=== PATIENT | male | born 1955 | race Hispanic/Latino ===

== ENCOUNTER 2022-06-22 04:16 | Emergency (ER) | payer OTHER ==
--- NOTE | 2022-06-22 05:27 | EDPHYS ---
Physician Documentation [facility] Name: José Manuel De La Paz Age: 67 yrs Sex: Male : 1955 Arrival Date: 06/22/2022 Time: 04:23 Bed 10 Private MD: ED Physician Esdras Zhong HPI: 06/22 07:37 This 67 yrs old Male presents to ER via Ambulatory with complaints of Numbness kdr Of Face, Cough, Congestion. 07:38 Patient states that they have not been feeling well for the past week or so since that kdr he the flu. During speaking he has been feeling weak with mild cough and congestion he also complains primarily of a certain discomfort of his upper eyelid on the left . Onset: The symptoms/episode began/occurred yesterday. Severity of symptoms: At their worst the symptoms were mild in the emergency department the symptoms are unchanged. The patient has not experienced similar symptoms in the past. The patient has not recently seen a physician. Historical: - Allergies: 05:35 No Known Allergies; ke1 - PMHx: 05:35 None; ke1 - PSHx: 05:35 None; ke1 - Immunization history:: Client reports receiving the 2nd dose of the Covid vaccine. - Social history:: Smoking status: Patient/guardian denies using tobacco, the patient reports quitting approximately 20 years ago. ROS: 07:38 Constitutional: Negative for fever, chills, and weight loss, Eyes: Negative for injury, kdr pain, redness, and discharge, Neck: Negative for injury, pain, and swelling, Cardiovascular: Negative for chest pain, palpitations, and edema. 07:38 Eyes: Positive for itching, pain, redness, of the left upper eyelid, Negative for kdr discharge, foreign body sensation, icterus, tearing, vision loss. Exam: 07:38 Constitutional: This is a well developed, well nourished patient who is awake, alert, kdr and in no acute distress. Head/Face: Normocephalic, atraumatic. Neck: Trachea midline, no thyromegaly or masses palpated, and no cervical lymphadenopathy. Supple, full range of motion without nuchal rigidity, or vertebral point tenderness. No Meningismus. 07:38 Eyes: Lids and lashes: edema, of the left eye, erythema, on the left, Margin of left upper lid. Vital Signs: 05:32 BP 170 / 92; Pulse 67; Resp 19; Temp 98.1; Pulse Ox 99% on R/A; Weight 64.41 kg; Height ke1 5 ft. 3 in. (160.02 cm); 05:32 Body Mass Index 25.15 (64.41 kg, 160.02 cm) ke1 NIH Stroke Scale Scores: 05:35 NIHSS Score: 0 ke1 MDM: 05:26 Patient medically screened. kdr 07:38 Data reviewed: vital signs, nurses notes. Counseling: I had a detailed discussion with kdr the patient and/or guardian regarding: the historical points, exam findings, and any diagnostic results supporting the discharge/admit diagnosis, the need for outpatient follow up. Administered Medications: No medications were administered Disposition Summary: 06/22/22 05:26 Discharge Ordered Location: Home kdr Problem: new kdr Symptoms: are unchanged kdr Condition: Stable kdr Diagnosis - Blepharitis kdr Followup: kdr - With: Private Physician - When: 2 - 3 days - Reason: If symptoms return, Further diagnostic work-up, Recheck today's complaints, Continuance of care, Re-evaluation by your physician Discharge Instructions: - Discharge Summary Sheet kdr - Blepharitis, [id number] kdr Forms: - Medication Reconciliation Form kdr - Thank You Letter kdr - Antibiotic Education kdr - Prescription Opioid Use kdr Prescriptions: - Erythromycin 5 mg/gram (0.5 %) Ophthalmic Ointment - apply 1 centimeter by OPHTHALMIC route 2-3 times daily for 7 days; 1 tube; kdr Refills: 0, Product Selection Permitted NIH Stroke Scale - NIH Stroke Score Date: 06/22/2022 Time: 05:35 Total Score = 0 1a. Level of Consciousness (LOC) - 0(Alert) 1b. Level of Consciousness (LOC) (Month \T\ Age) - 0(Both) 1c. LOC Commands (Open \T\ Closes Eyes/Voucher Examiner) - 0(Both) 2. Best Gaze (Lateral Gaze Paresis) - 0(Normal) 3. Visual Field Loss - 0(No visual loss) 4. Facial Palsy - 0(Normal) 5a. Left Arm: Motor (10-second hold) - 0(No drift) 5b. Right Arm: Motor (10-second hold) - 0(No drift) 6a. Left Leg: Motor (5-second hold - always test supine) - 0(No drift) 6b. Right Leg: Motor (5-second hold - always test supine) - 0(No drift) 7. Limb Ataxia (finger/nose \T\ heel/barbour - test with eyes open) - 0(Absent) 8. Sensory Loss (pinprick arms/legs/face) - 0(Normal) 9. Best Language: Aphasia (description/naming/reading) - 0(No aphasia) 10. Dysarthria (speech clarity - read or repeat words) - 0(Normal) 11. Extinction and Inattention (visual/tactile/auditory/spatial/personal) - 0(No abnormality) Initials: ke1 Signatures: Esdras Zhong MD MD kdr Ebrottie, Kouassi, RN RN ke1
--- NOTE | 2022-06-22 05:53 | ER ---
Nurse's Notes [facility] Name: José Manuel De La Paz Age: 67 yrs Sex: Male : 1955 Arrival Date: 06/22/2022 Time: 04:23 Bed 10 Private MD: Diagnosis: Blepharitis Presentation: 06/22 05:32 Chief complaint: Patient states: Patient reports not feeling well since he got flu last ke1 week , feeling weak and woke up today withe left facial twitch , cough and congestion. Coronavirus screen: Vaccine status: Patient reports receiving the 2nd dose of the covid vaccine. Ebola Screen: No symptoms or risks identified at this time. Initial Sepsis Screen: Does the patient meet any 2 criteria? No. Patient's initial sepsis screen is negative. Does the patient have a suspected source of infection? No. Patient's initial sepsis screen is negative. Risk Assessment: Do you want to hurt yourself or someone else? Patient reports no desire to harm self or others. Onset of symptoms was June 22, 2022 at 02:30. 05:32 Method Of Arrival: Ambulatory ke1 05:32 Acuity: BENJAMIN 3 ke1 Triage Assessment: 05:35 General: Appears in no apparent distress. Behavior is calm, appropriate for age. Pain: ke1 Denies pain. Respiratory: Breath sounds are clear bilaterally. Historical: - Allergies: 05:35 No Known Allergies; ke1 - PMHx: 05:35 None; ke1 - PSHx: 05:35 None; ke1 - Immunization history:: Client reports receiving the 2nd dose of the Covid vaccine. - Social history:: Smoking status: Patient/guardian denies using tobacco, the patient reports quitting approximately 20 years ago. Screenin:35 Abuse screen: Denies threats or abuse. Nutritional screening: No deficits noted. ke1 Tuberculosis screening: No symptoms or risk factors identified. VAN Screening: Arm Drift: Patient shows no arm weakness. Patient is VAN negative. Visual Disturbance: No visual disturbance noted. Aphasia: No aphasia noted. Neglect: No neglect noted. Fall Risk None identified. Assessment: 05:37 Cardiovascular: Capillary refill < 3 seconds Patient's skin is warm and dry. ke1 Respiratory: Airway is patent Trachea midline Respiratory effort is even, unlabored. Vital Signs: 05:32 BP 170 / 92; Pulse 67; Resp 19; Temp 98.1; Pulse Ox 99% on R/A; Weight 64.41 kg; Height ke1 5 ft. 3 in. (160.02 cm); 05:32 Body Mass Index 25.15 (64.41 kg, 160.02 cm) ke1 NIH Stroke Scale Scores: 05:35 NIHSS Score: 0 ke1 ED Course: 04:23 Patient arrived in ED. ja2 04:36 Esdras Zhong MD is Attending Physician. kdr 05:24 Ravi French, KELI is Primary Nurse. ke1 05:35 Triage completed. ke1 05:35 Patient has correct armband on for positive identification. Call light in reach. ke1 05:37 Arm band placed on left wrist. ke1 05:51 No provider procedures requiring assistance completed. Patient did not have IV access ke1 during this emergency room visit. Administered Medications: No medications were administered Medication: 05:52 VIS not applicable for this client. ke1 Outcome: 05:26 Discharge ordered by . kdr 05:52 Discharged to home ambulatory. ke1 05:52 Condition: good 05:52 Discharge instructions given to patient. 05:52 Patient left the ED. ke1 NIH Stroke Scale - NIH Stroke Score Date: 06/22/2022 Time: 05:35 Total Score = 0 1a. Level of Consciousness (LOC) - 0(Alert) 1b. Level of Consciousness (LOC) (Month \T\ Age) - 0(Both) 1c. LOC Commands (Open \T\ Closes Eyes/Bass Fisher) - 0(Both) 2. Best Gaze (Lateral Gaze Paresis) - 0(Normal) 3. Visual Field Loss - 0(No visual loss) 4. Facial Palsy - 0(Normal) 5a. Left Arm: Motor (10-second hold) - 0(No drift) 5b. Right Arm: Motor (10-second hold) - 0(No drift) 6a. Left Leg: Motor (5-second hold - always test supine) - 0(No drift) 6b. Right Leg: Motor (5-second hold - always test supine) - 0(No drift) 7. Limb Ataxia (finger/nose \T\ heel/barbour - test with eyes open) - 0(Absent) 8. Sensory Loss (pinprick arms/legs/face) - 0(Normal) 9. Best Language: Aphasia (description/naming/reading) - 0(No aphasia) 10. Dysarthria (speech clarity - read or repeat words) - 0(Normal) 11. Extinction and Inattention (visual/tactile/auditory/spatial/personal) - 0(No abnormality) Initials: ke1 Signatures: Esdras Zhong MD MD kdr Alexander, Jessica ja2 Ebrottie, Kouassi, RN RN ke1
[2022-06-22 05:57] VITALS: BP 170/92; TEMP 98.1; O2SAT 99
== END 2022-06-22 05:52 | disposition home or self-care (01) ==
LOC: ER 04:16
DX: H01.004 Unspecified blepharitis left upper eyelid (principal)
CPT/HCPCS: 99281